=== PATIENT | female | born 1945 | race Caucasian/White ===

== ENCOUNTER 2019-06-29 15:19 | Emergency (ER) | payer OTHER, SELFPAY ==
[2019-06-29 14:44] VITALS: BP 118/57; PULSE 66; RESP 20; O2SAT 92
[2019-06-29 15:19] VITALS: BP 150/71; PULSE 88; RESP 24; TEMP 37.1; O2SAT 98; BMI 25.0
[2019-06-29] MEDS: ONDANSETRON 4 MG/2 ML INJ IV (15:37)
--- NOTE | 2019-06-29 15:57 | ED.ABDPAIN ---
HPI - Abdominal Pain <Cassidy Sneed MD - Last Filed: 07/13/19 07:01> General Chief Complaint: Abdominal Pain Stated Complaint: N/V Time Seen by Provider: 06/29/19 15:26 Source: patient and EMS Mode of arrival: EMS History of Present Illness HPI narrative: 73-year-old woman with a history of hypercholesterolemia presents with acute onset of abdominal pain. She had just eaten her lunch(which was left overs from dinner the night before) when she had the acute onset of severe stabbing central abdominal pain. She is feeling bloated and nauseated. Her last bowel movement was this morning but she notes that she is not able to pass any flatus currently. She has been otherwise healthy with no fever, cough, cold, chills, chest pain, dyspnea. Related Data Previous Rx's Medication Instructions Recorded ondansetron 4 mg PO Q6H PRN #10 tab 06/29/19 Allergies Allergy/AdvReac Type Severity Reaction Status Date / Time atorvastatin AdvReac Unknown LEG CRAMPS Verified 06/29/19 16:09 methocarbamol AdvReac Unknown Agitated Verified 06/29/19 16:09 simvastatin AdvReac Unknown LEG CRAMPS Verified 06/29/19 16:09 sulfamethoxazole AdvReac Unknown Gastrointestinal Verified 06/29/19 16:09 [From Bactrim] Upset trimethoprim [From Bactrim] AdvReac Unknown Gastrointestinal Verified 06/29/19 16:09 Upset Review of Systems <Cassidy Sneed MD - Last Filed: 07/13/19 07:01> Review of Systems Narrative: All systems reviewed and are unremarkable except as noted in HPI and below Patient History <Cassidy Sneed MD - Last Filed: 07/13/19 07:01> Medical History Hyperlipidemia (Acute) Surgical History H/O hysterectomy for benign disease (Inactive) Social History Smoking Status: Never smoker Smoking Status: Never smoker alcohol intake frequency: 0-2 drinks per day Alcohol type: wine Substance Use Type: does not use Exam <Cassidy Sneed MD - Last Filed: 07/13/19 07:01> Narrative Exam Narrative: General: Healthy appearing, in moderate abdominal pain. Able to give a complete and coherent history. Well-nourished well-developed HEENT: Moist mucous membranes, normal sclera with reactive pupils, Neck: No JVD, supple Respiratory: Lungs are clear to auscultation, no wheezing no rales no rhonchi. Full and symmetrical air movement Cardiac: Regular rate and rhythm no murmurs no bruits Abdomen: Mildly distended, diffusely tender without rebound or guarding and hypoactive bowel tones, no flank pain Skin: Warm and dry, no rashes Neurologic: Grossly neurologically intact with no obvious asymmetries or abnormalities Extremities: No trauma, well perfused Psych: Cooperative, appropriate insight and affect Initial Vital Signs Initial Vital Signs: Vital Signs Pulse Rate 66 06/29/19 14:44 Respiratory Rate 20 06/29/19 14:44 Blood Pressure 118/57 L 06/29/19 14:44 Pulse Oximetry 92 06/29/19 14:44 <Johnnie Lopez DO - Last Filed: 06/30/19 01:15> Initial Vital Signs Initial Vital Signs: Vital Signs Pulse Rate 66 06/29/19 14:44 Respiratory Rate 20 06/29/19 14:44 Blood Pressure 118/57 L 06/29/19 14:44 Pulse Oximetry 92 06/29/19 14:44 Course <Cassidy Sneed MD - Last Filed: 07/13/19 07:01> Orders Ordered: Discontinued Medications Hydromorphone HCl (Dilaudid) 0.5 mg IV NOW ONE Stop: 06/29/19 16:06 Last Admin: 06/29/19 17:10 Dose: 0.5 mg Documented by: CAMRON Hydromorphone HCl (Dilaudid) 0.5 mg IV NOW ONE Stop: 06/29/19 17:37 Last Admin: 06/29/19 17:41 Dose: 0.5 mg Documented by: CAMRON Sodium Chloride (Normal Saline 0.9%) 1,000 mls @ 150 mls/hr IV CONT ACOSTA Last Infusion: 06/29/19 20:01 Dose: 0 mls/hr Documented by: Admin: 03/16/20 18:21 Dose: 150 mls/hr Documented by: CAMRON Ondansetron HCl (Zofran) 4 mg IV NOW ONE Stop: 06/29/19 15:27 Last Admin: 06/29/19 15:37 Dose: 4 mg Documented by: AMBERLY Ondansetron HCl (Zofran Odt Prepack) 1 bottle MISC SEEINSTR ONE Stop: 06/29/19 18:51 Last Admin: 06/29/19 19:42 Dose: 1 bottle Documented by: CAMRON Vital Signs Vital signs: Vital Signs - 8 hr 06/29/19 17:46 06/29/19 17:48 06/29/19 19:31 Temperature 97.7 F Pulse Rate 80 87 77 Respiratory Rate 21 18 15 Blood Pressure Blood Pressure [Left Arm] 137/66 134/63 129/60 Pulse Oximetry 97 98 95 06/29/19 20:05 Temperature Pulse Rate 77 Respiratory Rate 15 Blood Pressure 129/60 Blood Pressure [Left Arm] Pulse Oximetry 95 <Johnnie Lopez DO - Last Filed: 06/30/19 01:15> Orders Ordered: Discontinued Medications Hydromorphone HCl (Dilaudid) 0.5 mg IV NOW ONE Stop: 06/29/19 16:06 Last Admin: 06/29/19 17:10 Dose: 0.5 mg Documented by: CAMRON Hydromorphone HCl (Dilaudid) 0.5 mg IV NOW ONE Stop: 06/29/19 17:37 Last Admin: 06/29/19 17:41 Dose: 0.5 mg Documented by: CAMRON Sodium Chloride (Normal Saline 0.9%) 1,000 mls @ 150 mls/hr IV CONT ACOSTA Last Infusion: 06/29/19 20:01 Dose: 0 mls/hr Documented by: Admin: 06/29/19 18:21 Dose: 150 mls/hr Documented by: CAMRON Ondansetron HCl (Zofran) 4 mg IV NOW ONE Stop: 06/29/19 15:27 Last Admin: 06/29/19 15:37 Dose: 4 mg Documented by: AMBERLY Ondansetron HCl (Zofran Odt Prepack) 1 bottle MISC SEEINSTR ONE Stop: 06/29/19 18:51 Last Admin: 06/29/19 19:42 Dose: 1 bottle Documented by: CAMRON Vital Signs Vital signs: Vital Signs - 8 hr 06/29/19 17:46 06/29/19 17:48 06/29/19 19:31 Temperature 97.7 F Pulse Rate 80 87 77 Respiratory Rate 21 18 15 Blood Pressure Blood Pressure [Left Arm] 137/66 134/63 129/60 Pulse Oximetry 97 98 95 06/29/19 20:05 Temperature Pulse Rate 77 Respiratory Rate 15 Blood Pressure 129/60 Blood Pressure [Left Arm] Pulse Oximetry 95 MDM - Abdominal Pain <Cassidy Sneed MD - Last Filed: 07/13/19 07:01> Medical Records Attestation: I reviewed the patient's medical records. Lab Data Attestation: I reviewed the patient's lab results. Result diagrams: 06/29/19 16:14 06/29/19 16:14 Labs: Lab Results 06/29/19 06/29/19 Range/Units 16:14 16:14 WBC 12.2 H (4.5-11.0) X10^3/uL RBC 4.94 (4.0-5.2) X10^6/uL Hgb 15.0 (12.0-16.0) g/dL Hct 44.6 (36-46) % MCV 90.2 (80-100) fL MCH 30.4 (26-34) PG MCHC 33.7 (30-36) % RDW 14.2 (11.6-14.8) % Plt Count 193 (150-400) X10^3/uL Neut % (Auto) 85.8 H (50-75) % Lymph % (Auto) 7.7 L (25-40) % [place] % (Auto) 5.5 (3-14) % Eos % (Auto) 0.6 L (2-4) % Baso % (Auto) 0.4 (0-2) % Neut # (Auto) 48447 H (0233-3661) /uL Lymph # (Auto) 900 L (7479-2316) /uL [place] # (Auto) 700 (0-900) /uL Eos # (Auto) 100 (0-450) /uL Baso # (Auto) 0 (0-100) /uL Sodium 137 (137-145) mmol/L Potassium 4.4 (3.4-5.1) mmol/L Chloride 105 (98-107) mmol/L Carbon Dioxide 25 (22-32) mmol/L BUN 18 H (7-17) mg/dL Creatinine 1.04 (0.52-1.04) mg/dL Estimated GFR 52.2 L (>60) mL/min BUN/Creatinine Ratio 17.3 (6-22) Glucose 179 H (80-110) mg/dL Calcium 10.2 (8.4-10.2) mg/dL Total Bilirubin 0.7 (0.2-1.3) mg/dL AST 25 (14-36) IU/L ALT 22 (<35) IU/L Alkaline Phosphatase 74 (38-126) U/L Total Protein 7.3 (6.3-8.2) g/dL Albumin 4.3 (3.5-5.0) g/dL Globulin 3.0 (1.7-4.1) g/dL Albumin/Globulin Ratio 1.4 (1.0-2.8) Lipase 167 (23-300) U/L [facility] Narrative Medical decision making narrative: Very cute onset severe abdominal pain shortly after eating in the setting of a patient who has had her gallbladder already removed and had the same food less than 8 hours previously. Concern for acute torsion, volvulus, obstruction or other surgical pathology. Labs are ordered. 1735 Pain is slightly improved after 0.5 mg of Dilaudid. Renal function is safe for IV contrast. CT scan of the abdomen is ordered. Additional 0.5 mg of Dilaudid is given. <Johnnie Lopez DO - Last Filed: 06/30/19 01:15> Lab Data Labs: Lab Results 06/29/19 06/29/19 Range/Units 16:14 16:14 WBC 12.2 H (4.5-11.0) X10^3/uL RBC 4.94 (4.0-5.2) X10^6/uL Hgb 15.0 (12.0-16.0) g/dL Hct 44.6 (36-46) % MCV 90.2 (80-100) fL MCH 30.4 (26-34) PG MCHC 33.7 (30-36) % RDW 14.2 (11.6-14.8) % Plt Count 193 (150-400) X10^3/uL Neut % (Auto) 85.8 H (50-75) % Lymph % (Auto) 7.7 L (25-40) % [place] % (Auto) 5.5 (3-14) % Eos % (Auto) 0.6 L (2-4) % Baso % (Auto) 0.4 (0-2) % Neut # (Auto) 56225 H (5970-0610) /uL Lymph # (Auto) 900 L (1911-4579) /uL [place] # (Auto) 700 (0-900) /uL Eos # (Auto) 100 (0-450) /uL Baso # (Auto) 0 (0-100) /uL Sodium 137 (137-145) mmol/L Potassium 4.4 (3.4-5.1) mmol/L Chloride 105 (98-107) mmol/L Carbon Dioxide 25 (22-32) mmol/L BUN 18 H (7-17) mg/dL Creatinine 1.04 (0.52-1.04) mg/dL Estimated GFR 52.2 L (>60) mL/min BUN/Creatinine Ratio 17.3 (6-22) Glucose 179 H (80-110) mg/dL Calcium 10.2 (8.4-10.2) mg/dL Total Bilirubin 0.7 (0.2-1.3) mg/dL AST 25 (14-36) IU/L ALT 22 (<35) IU/L Alkaline Phosphatase 74 (38-126) U/L Total Protein 7.3 (6.3-8.2) g/dL Albumin 4.3 (3.5-5.0) g/dL Globulin 3.0 (1.7-4.1) g/dL Albumin/Globulin Ratio 1.4 (1.0-2.8) Lipase 167 (23-300) U/L Imaging Data CT scan - abdomen/pelvis: Radiologist's Impression: Neli Rowley 73 F [address] [address] [address] Scan Report Signed Patient: Neli Rowley#: [id number] : 8Acct:[id number] Age/Sex: 73 / FDate of Service: 03/16/20 Loc: ED Accession Number: [id number] Procedure: CT abdomen pelvis w con Ordering Provider: Cassidy Sneed MD PROCEDURE: CT ABDOMEN PELVIS W CON INDICATIONS: acute onset abd pain 2pm TECHNIQUE: After the administration of intravenous contrast, 5 mm thick sections acquired from the diaphragm to the symphysis. 5 mm coronal and sagittal reformats were acquired. For radiation dose reduction, the following was used: automated exposure control, adjustment of mA and/or kV according to patient size. COMPARISON: None. FINDINGS: Image quality: Excellent. ABDOMEN: Lung bases: Dense scarring/rounded atelectatic changes laterally at the left lung base and to lesser extent posterior medially at the right lung base. No effusion. Heart size is normal. Solid organs: Liver is normal in size and enhancement. Gallbladder is surgically absent. Biliary system is minimally dilated. Pancreas enhances normally. Spleen is normal in size and enhancement. No adrenal nodules. Kidneys demonstrate normal size and enhancement, without hydronephrosis. Peritoneum and bowel: The stomach is moderately distended and the proximal portion is filled with fluid. Proximal small bowel is decompressed. The distal small bowel contains fluid but is nondilated. There is liquid stool and air fluid levels throughout the proximal colon with semisolid stool seen distally. No transition point is seen. Occasional descending and sigmoid diverticulosis. No acute diverticulitis. Bowel loops demonstrate normal wall thickness and caliber. No free fluid or air. Nodes and vessels: No retroperitoneal or mesenteric adenopathy by size criteria. Aorta and inferior vena cava are normal in size. Miscellaneous: No ventral hernias. PELVIS: Genitourinary: Bladder wall thickness is normal. Uterus is surgically absent. Ovarian tissue is age-appropriate. Miscellaneous: No inguinal hernias or adenopathy. Bones: No suspicious bony lesions. Degenerative and postsurgical changes in the lumbar spine, most severely at L2-3 and L3-4. No vertebral body compression fractures. IMPRESSION: 1. Findings suggesting gastroenteritis. 2. Occasional diverticulosis without acute diverticulitis. 3. Post cholecystectomy, hysterectomy, lumbar hemilaminectomy. 4. Bibasilar atelectatic changes, left lung base worse than right. The Dictated by: Jody Elizalde M.D. on 06/29/2019 at 18:11 Approved by: Jody Elizalde M.D. on 06/29/2019 at 18:20 MDM Narrative Medical decision making narrative: Dr Lopez: Received turned over from Dr. villarreal. Review patient's history and physical. Reviewed patient's labs. Waiting on CT results which eventually resulted as no signs of acute surgical abnormality. Is consistent with gastroenteritis. This does with the patient's presenting symptoms. I did discuss this with the patient. We did discuss the CT results findings. No indication for antibiotics. Discussed return precautions and follow-up instructions. They expressed understanding and agreement with plan. Discharge Plan Departure Patient Disposition: Home Clinical Impression: Gastroenteritis Discharge Date/Time: 06/29/19 20:28 Instructions: Gastroenteritis Diet Activity Restrictions/Additional Instructions: Recommend that you wash your hands frequently. Be sure to increase your fluid intake. Use the nausea medication as needed and as directed. Contact your primary provider for follow-up. Do not be surprised if you develop diarrhea over the next couple days. If this happens just be sure you are drinking plenty of fluids. Return to the emergency department for any new or worsening symptoms Prescriptions: New ondansetron 4 mg tablet,disintegrating 4 mg PO Q6H PRN (Reason: nausea and vomiting) Qty: 10 RF: 0 Referrals: Pamela Lujan MD [Primary Care Provider] - Stand Alone Forms: Work Release Note
[2019-06-29 16:21] LABS: Add Manual Diff / Slide Review NO; Basophils Absolute Auto 0 /uL (0-100); Basophils Percent Auto 0.4 % (0-2); Eosinophils Absolute Auto 100 /uL (0-450); Eosinophils Percent Auto 0.6 % (2-4); Hematocrit 44.6 % (36-46); Lymphocytes Absolute Auto 900 /uL (1100-4500); Lymphocytes Percent Auto 7.7 % (25-40); Mean Corpuscular HGB Conc 33.7 % (30-36); Mean Corpuscular Hemoglobin 30.4 PG (26-34); Mean Corpuscular Volume 90.2 fL (80-100); Monocytes Absolute Auto 700 /uL (0-900); Monocytes Percent Auto 5.5 % (3-14); Neutrophils Absolute Auto 10400 /uL (1500-7000); Neutrophils Percent Auto 85.8 % (50-75); Platelet Count 193 X10^3/uL (150-400); Red Blood Cell Count 4.94 X10^6/uL (4.0-5.2); Red Cell Distribution Width 14.2 % (11.6-14.8); White Blood Cell Count 12.2 X10^3/uL (4.5-11.0)
[2019-06-29 16:38] LABS: Alanine Aminotransferase 22 IU/L (<35); Albumin 4.3 g/dL (3.5-5.0); Albumin Globulin Ratio 1.4 (1.0-2.8); Alkaline Phosphatase 74 U/L (38-126); Aspartate Aminotransferase 25 IU/L (14-36); BUN Creatinine Ratio 17.3 (6-22); Bilirubin Total 0.7 mg/dL (0.2-1.3); Blood Urea Nitrogen 18 mg/dL (7-17); Calcium 10.2 mg/dL (8.4-10.2); Carbon Dioxide 25 mmol/L (22-32); Chloride 105 mmol/L (98-107); Estimated Glomerular Filt Rate 52.2 mL/min (>60); Glucose 179 mg/dL (80-110); HEMOLYSIS 18 (0-50); Lipase 167 U/L (23-300); Potassium 4.4 mmol/L (3.4-5.1); Sodium 137 mmol/L (137-145); Total Protein 7.3 g/dL (6.3-8.2)
[2019-06-29] MEDS: HYDROMORPHONE 0.5 MG INJ IV ×2 (17:10→17:41)
--- NOTE | 2019-06-29 17:36 | DI.CT.S_ITS ---
PROCEDURE: CT ABDOMEN PELVIS W CON INDICATIONS: acute onset abd pain 2pm TECHNIQUE: After the administration of intravenous contrast, 5 mm thick sections acquired from the diaphragm to the symphysis. 5 mm coronal and sagittal reformats were acquired. For radiation dose reduction, the following was used: automated exposure control, adjustment of mA and/or kV according to patient size. COMPARISON: None. FINDINGS: Image quality: Excellent. ABDOMEN: Lung bases: Dense scarring/rounded atelectatic changes laterally at the left lung base and to lesser extent posterior medially at the right lung base. No effusion. Heart size is normal. Solid organs: Liver is normal in size and enhancement. Gallbladder is surgically absent. Biliary system is minimally dilated. Pancreas enhances normally. Spleen is normal in size and enhancement. No adrenal nodules. Kidneys demonstrate normal size and enhancement, without hydronephrosis. Peritoneum and bowel: The stomach is moderately distended and the proximal portion is filled with fluid. Proximal small bowel is decompressed. The distal small bowel contains fluid but is nondilated. There is liquid stool and air fluid levels throughout the proximal colon with semisolid stool seen distally. No transition point is seen. Occasional descending and sigmoid diverticulosis. No acute diverticulitis. Bowel loops demonstrate normal wall thickness and caliber. No free fluid or air. Nodes and vessels: No retroperitoneal or mesenteric adenopathy by size criteria. Aorta and inferior vena cava are normal in size. Miscellaneous: No ventral hernias. PELVIS: Genitourinary: Bladder wall thickness is normal. Uterus is surgically absent. Ovarian tissue is age-appropriate. Miscellaneous: No inguinal hernias or adenopathy. Bones: No suspicious bony lesions. Degenerative and postsurgical changes in the lumbar spine, most severely at L2-3 and L3-4. No vertebral body compression fractures. IMPRESSION: 1. Findings suggesting gastroenteritis. 2. Occasional diverticulosis without acute diverticulitis. 3. Post cholecystectomy, hysterectomy, lumbar hemilaminectomy. 4. Bibasilar atelectatic changes, left lung base worse than right. The Dictated by: Jody Elizalde M.D. on 06/29/2019 at 18:11 Approved by: Jody Elizalde M.D. on 06/29/2019 at 18:20
[2019-06-29 17:46] VITALS: BP 137/66; PULSE 80; RESP 21; O2SAT 97
[2019-06-29 17:48] VITALS: BP 134/63; PULSE 87; RESP 18; TEMP 36.5; O2SAT 98
[2019-06-29] MEDS: SODIUM CHLORIDE 0.9% 1,000 ML 150 ML IV (18:21)
--- NOTE | 2019-06-29 18:56 | PC.NURSE ---
Patient gave Trever the number to her daughter and would like an able body to call her at with details of her ER visit. Patient was left in room with call light in reach and is alert and oriented. She reports that her pain goals have been met.
[2019-06-29 19:31] VITALS: BP 129/60; PULSE 77; RESP 15; O2SAT 95
[2019-06-29] MEDS: ONDANSETRON 4 MG ODT PREPACK 1 BOTTLE MISC (19:42)
[2019-06-29 20:05] VITALS: BP 129/60; PULSE 77; RESP 15; O2SAT 95
== END 2019-06-29 20:28 | disposition home or self-care (01) ==
PROVIDERS: Emergency Medicine; Emergency Provider Emergency Medicine; PCP Internal Medicine
DX: K52.9 Noninfective gastroenteritis and colitis, unspecified (principal); E78.5 Hyperlipidemia, unspecified
CPT/HCPCS: 36415; 74177; 80053; 83690; 85025; 93005; 96361; 96374; 96375; 96376; 99284; J1170; J2405; Q9967

== ENCOUNTER → 2020-08-15 09:26 | Outpatient (CLI) | payer OTHER, SELFPAY ==
--- NOTE | 2020-08-15 09:28 | DI.MRI.S_ITS ---
PROCEDURE: MR KNEE LT WO CON INDICATIONS: Unilateral primary osteoarthritis, left knee TECHNIQUE: Noncontrast sagittal PD fast spin echo and T2 fast spin echo with fat saturation, sagittal 3-D FLASH with fat saturation; coronal T1 spin echo and PD fast spin echo with fat saturation, and axial PD fast spin echo with fat saturation through the knee. COMPARISON: [facility], MR, MR KNEE LEFT WITHOUT CONTRAST, 10/21/2018, 9:47. [facility], CR, XR KNEE 4+ VIEWS LEFT, 06/08/2020, 16:39. FINDINGS: Image quality: Degraded by body habitus and motion artifact. Menisci: Medial extrusion of the medial meniscus is present, as before. There is increased, linear and amorphous high signal intensity within the anterior horn, body, and posterior horn medial meniscus, demonstrating superior and inferior articular surface extension, indicating progressive complex tearing. Linear oblique high signal intensity within the lateral meniscal body, demonstrating inferior articular surface extension is present, indicating oblique tearing. Previously seen degenerative tearing of the free edge of the lateral meniscus is unchanged. Cruciate ligaments: The anterior and posterior cruciate ligaments appear intact. Medial structures: The medial collateral ligament appears intact. Visualized portions of the pes anserinus tendons appear normal. Mild T2 signal elevation within the semimembranosus at the tibial insertion site, as before. No abnormal bursal fluid. Lateral structures: The lateral collateral ligament, long and short heads of the biceps femoris tendon appear intact. The popliteus tendon appears normal. Iliotibial band appears normal. Anterior structures: The quadriceps and patellar tendons appear intact. Moderate T2 signal elevation within the quadriceps tendon at the patellar insertion site. Patellar alignment is normal. No femoral trochlear dysplasia or ventral trochlear prominence. No edema in the infrapatellar fat pad. Bones and cartilage: No bone marrow contusions or fractures. Moderate tricompartmental periarticular osteophyte formation is present. Mild subchondral degenerative marrow edema within the weight-bearing aspects of the medial femoral condyle and medial tibial plateau is present. Severe articular cartilage loss diffusely overlies the weight-bearing aspects of the medial femoral condyle and medial tibial plateau. Mild articular cartilage loss diffusely overlies the weight-bearing aspects of the lateral femoral condyle and lateral tibial plateau. Moderate articular cartilage loss overlies the medial and lateral patellar facets. Joint space: There is a moderate knee joint effusion and a trace Nation's cyst. Normal appearing synovial plicae are incidentally noted. IMPRESSION: 1. Tricompartmental osteoarthritis with associated articular cartilage loss. 2. Medial and lateral meniscal tearing as described above. 3. Quadriceps tendinopathy. 4. Insertional tendinitis of the semimembranosus. New line 5. Knee joint effusion. Dictated by: Luke Pizarro M.D. on 08/15/2020 at 11:12 Approved by: Luke Pizarro M.D. on 08/15/2020 at 11:16
== END ==
PROVIDERS: PCP Orthopaedic Surgery; Referring Provider Orthopaedic Surgery; Visit Provider Orthopaedic Surgery
DX: M17.12 Unilateral primary osteoarthritis, left knee (principal); S83.232A Complex tear of medial meniscus, current injury, left knee, initial encounter; S83.282A Other tear of lateral meniscus, current injury, left knee, initial encounter; M25.462 Effusion, left knee; M76.892 Other specified enthesopathies of left lower limb, excluding foot
CPT/HCPCS: 73721

== ENCOUNTER → 2020-09-12 09:05 | Outpatient (CLI) | payer OTHER, SELFPAY ==
[2020-09-12 12:03] LABS: COVID19 -Nasal RAPID Negative (Negative)
== END ==
PROVIDERS: Visit Provider Student in an Organized Health Care Education/Training Program
DX: Z20.822 Contact with and (suspected) exposure to COVID-19 (principal); Z01.812 Encounter for preprocedural laboratory examination
CPT/HCPCS: 87635; C9803

== ENCOUNTER 2020-09-14 14:25 | Observation (INO) | payer OTHER, SELFPAY ==
[2020-09-06 12:40] VITALS: BMI 45.8
[2020-09-13] VITALS (16 sets, daily range): BP systolic 106–167; BP diastolic 65–91; PULSE 74–90; RESP 12–20; TEMP 36–36.9; O2SAT 90–98; BMI 45.8
[2020-09-13] MEDS: ACETAMINOPHEN 325 MG TABLET 975 MG PO (06:46)
[2020-09-13] MEDS: MELOXICAM 7.5 MG TABLET 15 MG PO (06:47)
[2020-09-13] MEDS: VANCOMYCIN 1,000 MG/200 ML PIGGYBACK 200 MG IV (07:14)
[2020-09-13 07:18] LABS: Add Manual Diff / Slide Review NO; Basophils Absolute Auto 100 /uL (0-100); Basophils Percent Auto 1.1 % (0-2); Eosinophils Absolute Auto 300 /uL (0-450); Eosinophils Percent Auto 4.7 % (2-4); Hematocrit 38.3 % (36-46); Hemoglobin 13.2 g/dL (12.0-16.0); Lymphocytes Absolute Auto 1500 /uL (1100-4500); Lymphocytes Percent Auto 22.7 % (25-40); Mean Corpuscular HGB Conc 34.5 % (30-36); Mean Corpuscular Hemoglobin 30.8 PG (26-34); Mean Corpuscular Volume 89.2 fL (80-100); Monocytes Absolute Auto 400 /uL (0-900); Monocytes Percent Auto 6.9 % (3-14); Neutrophils Absolute Auto 4200 /uL (1500-7000); Neutrophils Percent Auto 64.6 % (50-75); Platelet Count 188 X10^3/uL (150-400); Red Blood Cell Count 4.29 X10^6/uL (4.0-5.2); Red Cell Distribution Width 14.2 % (11.6-14.8); White Blood Cell Count 6.5 X10^3/uL (4.5-11.0)
[2020-09-13 07:29] LABS: BUN Creatinine Ratio 9.3 (6-22); Blood Urea Nitrogen 9 mg/dL (7-17); Calcium 8.2 mg/dL (8.4-10.2); Carbon Dioxide 23 mmol/L (22-32); Chloride 107 mmol/L (98-107); Estimated Glomerular Filt Rate 56.3 mL/min (>60); Glucose 161 mg/dL (80-110); HEMOLYSIS < 15 (0-50); Potassium 4.6 mmol/L (3.4-5.1); Sodium 137 mmol/L (137-145)
[2020-09-13] MEDS: LACTATED RINGERS 1,000 ML 42 ML IV ×2 (07:30→08:29)
[2020-09-13] MEDS: FAMOTIDINE 20 MG/50 ML PIGGYBACK 200 MG IV (07:30)
--- NOTE | 2020-09-13 07:36 | P.OP_ITS ---
Operative Date/Time/Diagnoses Date of procedure: 09/13/20 Time of procedure: 07:59 Pre-op diagnosis: left knee OA Post-op diagnosis: same Procedure & Clinicians Procedure: Left total knee replacement Same procedure as scheduled: Yes Indications: The patient has had progressively worsening left knee pain with radiographic changes consistent with arthritis. Non-operative management has failed and the patient has requested total knee replacement. The risks, benefits and alternatives to surgery were discussed with the patient prior to proceeding. Risks discussed included, but were not limited to, failure to relieve pain, stiffness, infection, nerve damage, deep venous thrombosis, pulmonary embolism, stroke, coma, heart attack, permanent paralysis and , as well as the potential need for eventual revision of the prosthetic. Preoperatively she was noted to have substantial problems with diabetes. She was meticulously stabilized with her primary care practitioner and her manager customer service. I anticipate she will require close glucose monitoring postoperatively and will likely require admission in order to optimally care for her in the perioperative. Surgeon: Roselyn Fletcher Census Enumerator: Duane Carlin Click Yes if Unassisted: Yes Anesthesia Type: Spinal Operative Notes Findings: Severe left knee arthritis good stability Closure Type: primary Specimen(s): none sent Prosthetic devices, grafts, tissues, transplants, or devices: [facility] 2 size 7 femur, size 6 tibia, 11 poly, 35 x 7.5 mm patella Applied: drain(s) Estimated Blood Loss (mL): 250 Blood products transfused: none Tourniquet time (min): 74 Procedure in detail: The patient was seen in the pre-operative area, where the patient identified the left knee as the operative site and this was marked with my initials. The patient received pre-operative antibiotics, and was taken to the operating room and placed on the operative table in the supine position. After satisfactory anesthesia, a quoter out was performed. The left leg was encircled with a tourniquet about the proximal thigh, and the leg was prepared from the toes to the tourniquet with ChloroPrep in the usual fashion and draped through sterile drapes. The leg was elevated and exsanguinated with Eschmark bandage and the tourniquet inflated to [250] mmHg pressure. The knee was approached through an approximately 18 cm incision centered over the patella and carried into the knee through a medial parapatellar arthrotomy. A portion of the medial and lateral meniscus was resected. Soft tissue was carefully mobilized around the patella the patella was measured with a caliper. Bone was resected from the patella and the patellar height was reconstituted with up an appropriate sized patellar component. A cover was then placed on the patella. A small amount of additional medial and lateral meniscus was resected. The visionare guide fit well to the distal femur. It looked like an appropriate distal femoral cut and the cut was made without difficulty. The rotation was assessed and the appropriate size femoral guide was placed on the distal femur and finishing cuts were made. There was no evidence of notching. The anterior, posterior and chamfer cuts were then made. The posterior osteophytes and soft tissues were then removed. The posterior capsule was injected with part of a mixture of 60 ml 0.25% Marcaine mixed with 20 ml Exparel for post operative pain control. The remainder of this mixture was injected into the capsule and subcutaneous tissues during cement curing. The tibia was prepared and the visionaire guide fit well to the distal tibia. The rotation was assessed. The patient was placed in extension residual medial and lateral meniscus as well as any residual bone was carefully resected. [No] additional tibia was resected. Hemostasis was achieved especially posteriorly. Additional local was injected into the posterior capsule. The extension gap was assessed and additional releases for gap balancing were performed as necessary. It was checked with the gap head of sales promotion. The femoral component was trial was placed and the notch was finished. Trial tibial and femoral components were then placed and the knee placed through a range of motion. Range of motion was [0-120], with good stability throughout the range. The trials were then removed, and the tibia was finished. The bone was prepared with pulsatile lavage, and dried with a sponge. Cement was applied and the final prosthetics placed. Excess cement was removed during and after cement curing. A brief Betadine soak was performed. After confirming there was no extruded cement posteriorly, the final tibial insert was placed. The knee was copiously irrigated and the tourniquet deflated. Hemostasis was obtained with the Bovie. A drain was placed and brought out superolaterally. The capsule was closed with interrupted Vicryl suture. The subcutaneous layer was closed with barbed sutures, and the skin with a running 3-0 V-Lock suture and Surgical glue. An Aquacel Ag dressing was applied and the patient was taken to recovery having tolerated the procedure well. Complications: none Post-operative Condition: stable Disposition: Acute Care Plan for aftercare: The patient will be maintained on a standard total knee replacement protocol with weight bearing as tolerated. The patient will receive aspirin and sequential compression devices for DVT prophylaxis. She has multiple medical problems including diabetes which requires meticulous control and monitoring, sleep apnea, hypertension and thyroid disorder as well as substantial arthritis and morbid obesity. I anticipate she will require hospitalization as it is most likely she will require at least a 2 night stay. She also has some issues related to urinary incontinence. We will attempt to mobilize her as quickly as possible and will work towards discharge to home when stable. The patient will be discharged home when safe for the home environment.
--- NOTE | 2020-09-13 07:36 | PM.PREOP ---
Pre-operative Note COVID-19 COVID-19 status: Negative Interval Note History & Physical reviewed/Exam performed by Physician: Yes Changes to H&P: No
[2020-09-13] MEDS: CEFAZOLIN 1 GM VIAL 2 GM IV (07:58)
--- NOTE | 2020-09-13 08:18 | SUR.OPER ---
Supine on padded OR bed. Pillow under head, arms secured on padded arm boards <90 degree abduction. Safety belt across torso. Non-operative leg secured with tape over blanket over lower leg. Operative leg secured in DeMayo positioner. Foam padded brace at thigh of operative leg.
[2020-09-13] MEDS: TRANEXAMIC ACID 1,000 MG VIAL 1000 MG INJ ×2 (08:27→09:42)
[2020-09-13] MEDS: BUPIVACAINE LIPOSOME 266 MG/20 ML VIAL INJ (08:30)
[2020-09-13] MEDS: SODIUM CHLORIDE IRRIG SOLUTION 250 ML, POVIDONE-IODINE SPONGE STICKS 1 APPLIC IRR (08:30)
[2020-09-13] MEDS: BUPIVACAINE 0.5% W/ EPI (PF) 30 ML VIAL INJ (08:31)
--- NOTE | 2020-09-13 10:00 | DI.RAD.S_ITS ---
PROCEDURE: XR KNEE LT 1TO2V INDICATIONS: LEFT TOTAL KNEE TECHNIQUE: 2 views of the knee were acquired. COMPARISON: [facility] [place], [place], XR KNEE 4+ VIEWS LEFT, 06/08/2020, 16:39. FINDINGS: Bones: No fractures or dislocations. No suspicious bony lesions. Left knee arthroplasty has been performed. Soft tissues: No joint effusion. No suspicious soft tissue calcifications. IMPRESSION: Expected appearance of left knee arthroplasty. Dictated by: Luke Pizarro M.D. on 09/13/2020 at 16:25 Approved by: Luke Pizarro M.D. on 09/13/2020 at 16:26
--- NOTE | 2020-09-13 10:44 | PC.NURSE ---
Day shift: Pt not on AC unit at this time (7100).
--- NOTE | 2020-09-13 10:59 | PC.NURSE ---
Day shift: Pt on unit from PACU at approx 1100. Oriented to room and call light. Agrees to not get OOB w/o help from staff. PPP but Pt not able to move left toes at this time. RA 96%. VS WNL. SHRAVAN wrap and EDWARD drain CDI. Cristhian-vac is clamped and will be unclamped at 1220 today. Call light in reach. Denies any pain at this time. Pt also stated that she wjust wants to sleep at this time. Will continue w/ plan of care. IV fluids infusing per MAR. Pt does have Hx of post-op nausea and emesis. RT called to help set-up CPAP.
[2020-09-13] MEDS: LACTATED RINGERS 1,000 ML 100 ML IV ×2 (11:13→22:23)
--- NOTE | 2020-09-13 12:21 | PC.NURSE ---
Day shift: Cristhian-vac unclamped at this time (0868). It is patent. Will monitor output per protocol. Pt remains asleep. 94% RA. No s/s of pain or discomfort. IV infusing per MAR. Call light in reach.
--- NOTE | 2020-09-13 13:05 | PT-IP ANOTE ---
checked with nurse and stated that pt is not ready for PT. stated pt is just starting to be able to wiggle her toes but barely. will f/u
[2020-09-13] MEDS: IBUPROFEN 400 MG TABLET PO ×3 (13:38→19:59)
[2020-09-13] MEDS: OXYCODONE IR 5 MG TABLET PO (13:59)
[2020-09-13] MEDS: ACETAMINOPHEN 325 MG TABLET 650 MG PO ×2 (14:05→19:59)
[2020-09-13] MEDS: ONDANSETRON 4 MG/2 ML INJ IV (15:27)
[2020-09-13] MEDS: HYDROMORPHONE 4 MG TABLET PO ×2 (15:27→19:57)
[2020-09-13] MEDS: CEFAZOLIN VIAL 3 GM in SODIUM CHLORIDE 0.9% 100 ML 200 ML IV ×2 (15:35→23:49)
[2020-09-13] MEDS: KETOROLAC 30 MG/ML VIAL IV (17:18)
[2020-09-13] MEDS: PRAMIPEXOLE 0.25 MG TABLET PO (20:33)
[2020-09-13] MEDS: DOCUSATE 100 MG CAPSULE PO (20:34)
[2020-09-13] MEDS: PANTOPRAZOLE DR 40 MG TABLET PO (20:34)
[2020-09-13] MEDS: DULOXETINE 30 MG CAPSULE PO (20:34)
[2020-09-13] MEDS: ASPIRIN EC 81 MG TABLET PO (20:34)
[2020-09-13] MEDS: ATORVASTATIN 20 MG TABLET 10 MG PO (20:34)
[2020-09-13] MEDS: HYDROMORPHONE 0.5 MG INJ IV (22:18)
--- NOTE | 2020-09-13 23:13 | PC.NURSE ---
Evening Shift Note- EDWARD Dressing noted to be saturated with blood during shift assessment. EDWARD was on and functioning properly at that time. Dr. Fletcher saw dressing at this time. Recheck approx an hour late with More bloody drainage noted. called Dr. Fletcher, did not want to change dressing at that time. Dressing was checked again at 1999. EDWARD was now blinking orange with no noted suction to dressing. Unable to find and seal an air leak. Blood was now beyond the gauze of the dressing and pooling ubder the clear adhisive film. Called Dr. Fletcher again, recieved orders to now change the EDWARD Dressing and wrap with keysha wrap. Dressing changed, wound cleaned, new dressing placed, and keysha wrap applied. Patient tolerated. Will continue to [facility].
[2020-09-14 03:58] VITALS: BP 144/76; PULSE 78; RESP 18; TEMP 36.2; O2SAT 96
[2020-09-14] MEDS: KETOROLAC 30 MG/ML VIAL 15 MG IV ×3 (03:58→23:55)
--- NOTE | 2020-09-14 04:12 | PC.NURSE ---
At shift change patient stated left knee pain was 6/10 but tolerable and when pain meds due at 0000 patient was asleep and has been sleeping since that time but now awakened during assessment and now states pain is throbbing at 5/10 severity so medicated with Toradol. Is alert and oriented. Breath sounds CTA with RA sat of 96%; using home CPAP for sleep. HRR with current BP of 144/76. Denies nausea. BT present and states she has passed flatus. Has not voided as yet this shift but denies any dysuria. Is able to move herself in bed. Gait not assessed at this time. EDWARD dressing to left knee is intact with dark red drainage noted at distal end. Hemovac is intact and compressed but appears to not be functioning. Left LE is swollen. CMS is intact although does not have full ROM as yet. Wearing bilateral calf SCD's. Fall risk score is high and bed alarm is activated.
[2020-09-14 05:59] LABS: Hematocrit 33.5 % (36-46); Hemoglobin 11.4 g/dL (12.0-16.0)
[2020-09-14] MEDS: PANTOPRAZOLE DR 40 MG TABLET PO ×2 (06:30→21:44)
[2020-09-14] MEDS: LEVOTHYROXINE 100 MCG TABLET PO (06:30)
[2020-09-14] MEDS: ASPIRIN EC 81 MG TABLET PO ×2 (08:14→21:44)
[2020-09-14] MEDS: DULOXETINE 30 MG CAPSULE 120 MG PO (08:14)
[2020-09-14] MEDS: IBUPROFEN 400 MG TABLET PO (08:14)
[2020-09-14] MEDS: OXYBUTYNIN 5 MG ER TAB 15 MG PO (08:14)
[2020-09-14] MEDS: DOCUSATE 100 MG CAPSULE PO ×2 (08:14→21:44)
[2020-09-14] MEDS: ACETAMINOPHEN 325 MG TABLET 650 MG PO ×3 (08:15→21:42)
[2020-09-14 08:16] VITALS: BP 101/46
[2020-09-14] MEDS: LACTATED RINGERS 1,000 ML 100 ML IV (08:16)
[2020-09-14] MEDS: INSULIN LISPRO 100 UNIT/ML 3ML VIAL SUBCUT ×4 (08:25→21:46)
[2020-09-14] MEDS: INSULIN GLARGINE 100 UNIT/ML 3ML PEN 35 UNIT SUBCUT ×2 (08:51→21:44)
[2020-09-14] MEDS: HYDROMORPHONE 2 MG TABLET PO ×3 (08:54→18:44)
--- NOTE | 2020-09-14 08:55 | PT.IIE ---
Current Diagnoses Unilateral primary osteoarthritis, left knee (09/13/20) Surgery Performed Operation Date: 09/13/20 07:45 Actual Procedures p Total Knee Arthroplasty(Left) - Roselyn Fletcher MD Surgical History (Last Reviewed 09/14/20 @ 11:21 by Duane Carlin PA-C) H/O hysterectomy for benign disease History of ankle surgery (~1969) History of hysterectomy History of lumbar laminectomy (2013) Hx of appendectomy Hx of bilateral cataract extraction (~03/2020) Hx of cholecystectomy Hx of dilation and curettage Hx of sinus surgery S/P patent foramen ovale closure (2004) Medical History (Last Reviewed 09/14/20 @ 11:21 by Duane Carlin PA-C) Athlete's foot Diabetes Easy bruisability Gastroparesis GERD (gastroesophageal reflux disease) HTN (hypertension) Hyperlipidemia Hypothyroidism IBS (irritable bowel syndrome) Neuropathy SAUNDRA on CPAP Pneumonia Presence of device Rash and nonspecific skin eruption RLS (restless legs syndrome) Physical Therapy Inpatient Evaluation/Re-Eval M1 PT/OT-IP Prior Functional Status Start: 09/14/20 12:16 Freq: NEEDED Status: Active Protocol: Document 09/14/20 08:55 AB (Rec: 09/14/20 12:37 AB [id number]) Medical Review Prior Functional Status Medical History Reviewed Yes Communication able to make needs known Mobility and Gait pt stated that she is independent with all mobilities and ambulation without AD Social History Household Members none Living Arrangements Apartment/Condo Number of Stairs To Enter/Railing? pt lives at a 2nd floor apartement with an elevator to get to her floor Home Environment Standard Height Toilet,Tub/ Shower,Elevator Home Equipment Four Wheel Walker,Raised Toilet Seat w/Armrests,Hand Held Shower,Grab Bars Near Toilet,Grab Bars In Shower Employment Status Retired Additional Social History Comment pt stated that she has friends that can assist her if needed but there's nobody to set up to assist her; also stated that she can stay at her friends house M2 PT-IP Current Condition Start: 09/14/20 12:16 Freq: NEEDED Status: Active Protocol: Document 09/14/20 08:55 AB (Rec: 09/14/20 12:37 AB [email or web address]) Physical Therapy Current Condition Current Condition Evaluation Date 09/14/20 Treatment Diagnosis s/p L TKA ; difficulty in walking Onset Date 09/13/20 Precautions Other Precautions falls Weight Bearing Status Weight Bearing Status Weight Bear as Tolerated Allowed Weight Bearing Amount (enter % LLE WBAT or #) (%) M3 PT-IP Subjective Start: 09/14/20 12:16 Freq: NEEDED Status: Active Protocol: Document 09/14/20 08:55 AB (Rec: 09/14/20 12:37 AB [id number]) Subjective Physical Therapy Visit Type Type Initial Evaluation Visit Start Time 08:55 Visit Stop Time 09:56 Total Visit Minutes 61 Number of LAUNDRY TECHNICIAN Visits 0 Physical Therapy Visit Comments Patient Comments requires encouragement to participate Therapy Pain Assessment Pain When Pain Assessed At Rest Pain Present Pain Present Pain Reported Location left knee Intensity 5 Scale Used Numeric (0 - 10) Pain Management Techniques Apply Cold,Modification of Treatment,Re-positioning, Timing of Activity with Medications M4 PT-IP Mobility and Gait Start: 09/14/20 12:16 Freq: NEEDED Status: Active Protocol: Document 09/14/20 08:55 AB (Rec: 09/14/20 12:37 AB [id number]) PT-Bed Mobility Assessment Sit to Supine Sit to Supine Maximum Assistance PT-Transfer Assessment Sit to and From Stand Sit to and from Stand Maximum Assistance,1 Person Assistance,Use of Upper Extremities Equipment Transfer Assistive Device Front Wheeled Walker Orthotic/Prosthetic Devices or Brace: No Transfers Transfer Destination Bed Transfer Technique Stand Step Pivot Transfer Ability Level of Assist Maximum Assistance,Use of Upper Extremities Comments Mobility Comments completed sit to stand max A and max cues. instructed pt to sit back down requiring max A for controlled descent. educated pt on techniques for sit<>stand. completed sit <> stand x 3 reps max A and cues. ambulated ~ 3 ft using FWW max A and max cue with heavy UE weight bearing on FWW. pt requested to go back to bed. completed sit to supine max A and max cues. positioned on bed. call light and table placed within reach. informed pt regarding mobility assistance needs and recommendation of FWW. pt stated that she does not want to go to SNF but does not have somebody consistent to assist her / at home. stated that she is not going to get up much and walk around at home. also stated that the PT from her pre-op told her that her 4WW will be ok to use as long as she is safe. explained to pt regarding stability and safety and assistance needed at this time a FWW is recommended. pt directs her own care and refused to go to SNF but does not have a definite plan of assistance for safe d/c home. Gait Assessment Gait Gait Assistance Required: Maximum Assistance Distance (Feet) 3 Able to Maintain Weight Bearing Status Yes During Gait Assistive Devices Assistive Device Gait Belt,Front Wheeled Walker Orthotic/Prosthetic Devices or Brace: No Gait Deviations General Gait Pattern Antalgic,Decreased Stride Length,Decreased Feet Clearance,Step-to Gait Factors Limiting Gait Function Factors Limiting Gait Function Decreased Activity Tolerance, Decreased Strength,Difficulty Following Directions,Limited Range of Motion,Pain,Poor Balance,Poor Safety Awareness PT-Balance Assessment Sitting Balance and Reactions Static Sitting Balance Ability Good Dynamic Sitting Balance Ability Fair Standing Balance and Reactions Static Standing Balance Ability Poor Dynamic Standing Balance Ability Poor M5 PT-IP Objective Assessments Start: 09/14/20 12:16 Freq: NEEDED Status: Active Protocol: Document 09/14/20 08:55 AB (Rec: 09/14/20 12:37 AB [email or web address]) Orientation Orientation/Cognition Level of Alertness Alert Orientation Name,Place,Situation Safety Awareness Decreased Safety Awareness Memory Description Short Term Impaired Gross Range of Motion Lower Extremity ROM Impairments pain limiting ROM Strength Lower Extremity Strength Assessment Bilaterally Impaired Comments Strength Comments RLE: 3+/5 LLE: 3-/5 Sensation Assessment Sensation Gross Sensation WNL Muscle Tone Muscle Tone WNL Yes M6 PT-IP Treatment Start: 09/14/20 12:16 Freq: NEEDED Status: Active Protocol: Document 09/14/20 08:55 AB (Rec: 09/14/20 12:37 AB [id number]) Physical Therapy Treatment Education Education Provided Precautions,Weight Bearing Status,Post-Op Packet,Safety M7 PT-IP Assessment and Plan Start: 09/14/20 12:16 Freq: NEEDED Status: Active Protocol: Document 09/14/20 08:55 AB (Rec: 09/14/20 12:37 AB [email or web address]) PT Summary Assessment and Plan Potential Rehabilitation Potential Fair Status of Condition at Evaluation Evolving Summary Impairments Pain,ROM,Strength,Balance, Coordination,Sensation,Tone, Cognition,Bed Mobility, Transfers,Gait,Activity Tolerance Assessment Summary pt requiring max A with mobility and unable to tolerate much with c/o increase pain on L knee. pt also requires increase motivation to participate. informed pt regarding assistance needed at this time and equipement needs but pt is not too receptive with recommendations. pt. will need SNF rehab at this time but pt refuses to go to SNF. informed residential case manager and is aware. will continue to assess pt's progress. Goals Bed Mobility Goal Standby Assistance Transfer Goal Standby Assistance,Front Wheeled Walker Gait Goal Standby Assistance,Front Wheel Walker Gait Distance 50 Other Goals improve ambulation using 4WW 100 ft SBA Days to Meet Goals 10 Frequency of Treatment Frequency Of Treatment Twice a Day Treatment Plan Physical Therapy Treatment Plan Bed Mobility Training,Transfer Training,Gait Training, Therapeutic Exercise,Balance Retraining,Post Op Education, Discharge Planning,Hot or Cold Pack,Neuromuscular Re-ed, Coordination Retraining,Manual Therapy Other Recommendations and Next Treatment ambulation; transfers Focus Precautions Other Precautions LLE WBAT Recommendations To Nursing Amount of Assist Needed 1 Person Assist Discharge Recommendations PT Discharge Recommendations SNF Rehab Transportation Needs at Discharge Wheelchair/Cabulance
--- NOTE | 2020-09-14 11:20 | P.PN_ITS ---
Subjective Subjective Date Patient Seen: 09/14/20 Time Patient Seen: 11:20 Interval history: Patient's pain is currently mild. Denies fever or chills. No nausea or vomiting. Patient states she will probably stay with a friend for a few days when she is discharged home from surgery. Exam Vital Signs (past 8 hours): - 09/14/20 03:58 09/14/20 08:16 Temperature 97.2 F L Pulse Rate 78 Respiratory Rate 18 Blood Pressure 144/76 H 101/46 L Pulse Oximetry 96 Oxygen Delivery Method CPAP Oxygen Flow Rate 0 Narrative Exam Narrative: 75-year-old female resting comfortably in bed in no apparent distress. Radha dressing is on and functioning. Motor functions intact distal left lower extremity. Sensation grossly intact to light touch. Objective Labs Result Diagrams: 09/14/20 05:42 09/13/20 07:10 Labs: Laboratory Results - last 24 hr 09/14/20 05:42 Hgb 11.4 L Hct 33.5 L PFSH Medical History Athlete's foot Diabetes Easy bruisability Gastroparesis GERD (gastroesophageal reflux disease) HTN (hypertension) Hyperlipidemia Hypothyroidism IBS (irritable bowel syndrome) Neuropathy SAUNDRA on CPAP Pneumonia Presence of device Rash and nonspecific skin eruption RLS (restless legs syndrome) Surgical History H/O hysterectomy for benign disease History of ankle surgery (~1969) History of hysterectomy History of lumbar laminectomy (2013) Hx of appendectomy Hx of bilateral cataract extraction (~03/2020) Hx of cholecystectomy Hx of dilation and curettage Hx of sinus surgery S/P patent foramen ovale closure (2004) Social History household members: none Smoking Status: Never smoker alcohol intake: former Assessment & Plan Post-op Postoperative Procedures: Procedures Operation Date: 09/13/20 07:45 Actual Procedures Side Surgeon p Total Knee Arthroplasty Left Roselyn Fletcher MD Postop day 1 status post left total knee arthroplasty. Weight-bearing as tolerated. Mobilize with physical therapy. BMI 45.8. Expect patient to be slow to mobilize. Likely need correction facility for assistance and strengthening of the lower extremities.
--- NOTE | 2020-09-14 15:13 | PT.IPTN ---
Current Diagnoses Unilateral primary osteoarthritis, left knee (09/14/20) Surgery Performed Operation Date: 09/13/20 07:45 Actual Procedures p Total Knee Arthroplasty(Left) - Roselyn Fletcher MD Physical Therapy Treatment Note M2 PT-IP Current Condition Start: 09/14/20 12:16 Freq: NEEDED Status: Active Protocol: Document 09/14/20 08:55 AB (Rec: 09/14/20 12:37 AB [id number]) Physical Therapy Current Condition Current Condition Evaluation Date 09/14/20 Treatment Diagnosis s/p L TKA ; difficulty in walking Onset Date 09/13/20 Precautions Other Precautions falls Weight Bearing Status Weight Bearing Status Weight Bear as Tolerated Allowed Weight Bearing Amount (enter % LLE WBAT or #) (%) M3 PT-IP Subjective Start: 09/14/20 12:16 Freq: NEEDED Status: Active Protocol: Document 09/14/20 14:45 SP (Rec: 09/14/20 17:12 SP [id number]) Subjective Physical Therapy Visit Type Type Treatment Note Visit Start Time 14:45 Visit Stop Time 15:13 Total Visit Minutes 28 Number of LEAD HANDLER Visits 1 Physical Therapy Visit Comments Patient Comments Pt agreeable to working with therapy. Patient Goals return home with friends to assist her or stay with a friend, unsure her plan. Pt adiment that doesn't want to go to SNF. Therapy Pain Assessment Pain Present Pain Present Pain Reported Location left knee Intensity 7 Scale Used Numeric (0 - 10) Description With Movement Pain Behaviors Facial Grimacing Pain Management Techniques Apply Cold,Modification of Treatment,Re-positioning, Timing of Activity with Medications M4 PT-IP Mobility and Gait Start: 09/14/20 12:16 Freq: NEEDED Status: Active Protocol: Document 09/14/20 14:45 SP (Rec: 09/14/20 17:12 SP [id number]) PT-Bed Mobility Assessment Supine to Sit Supine to Sit Standby Assistance Scooting Scooting to Edge of Bed Standby Assistance PT-Transfer Assessment Sit to and From Stand Sit to and from Stand Contact Guard Assistance,1 Person Assistance,Use of Upper Extremities Equipment Transfer Assistive Device Gait Belt,Front Wheeled Walker Orthotic/Prosthetic Devices or Brace: No Transfers Transfer Destination Chair Transfer Technique pt ambulated using FWW Transfer Ability Level of Assist Standby Assistance,Contact Guard Assistance,Use of Upper Extremities Comments Mobility Comments supine>sit, scoot to EOB, sit> stand SBA. Pt ambulated further distance into hallway using fWW CGA>sBA step to gait initially with occasional cue for knee flexion heel toe with improved self corrections as distance progressed, stop stand rest at 50 ft due to pain and decreased strength and endurance. Pt stated has 250 ft to walk at home to get to appt just can't do right now, yet. Pt returned to room and SPT good FWW positioning and reach back slow descent onto chair and scoot self back . LEAD HANDLER provided cushions to support LLE in front. Discussed post op ex and referred to packet but not performed, will next tx. Pt had call light and all needs in reach, cold pack applied to L knee before left. Gait Assessment Gait Gait Assistance Required: Standby Assistance,Contact Guard Assist Distance (Feet) 100 Able to Maintain Weight Bearing Status Yes During Gait Assistive Devices Assistive Device Gait Belt,Front Wheeled Walker Orthotic/Prosthetic Devices or Brace: No Gait Deviations General Gait Pattern Antalgic,Decreased Stride Length,Decreased Feet Clearance,Step-to Gait Factors Limiting Gait Function Factors Limiting Gait Function Decreased Activity Tolerance, Decreased Strength,Limited Range of Motion,Pain Comments Gait Comments See mobiltiy comments for details. Stair Climbing Assessment Comments Stair Climbing Comments No stairs to assess at home. PT-Balance Assessment Sitting Balance and Reactions Static Sitting Balance Ability Good Dynamic Sitting Balance Ability Fair Standing Balance and Reactions Static Standing Balance Ability Good Dynamic Standing Balance Ability Fair Device Used FWW M5 PT-IP Objective Assessments Start: 09/14/20 12:16 Freq: NEEDED Status: Active Protocol: Document 09/14/20 08:55 AB (Rec: 09/14/20 12:37 AB [id number]) Orientation Orientation/Cognition Level of Alertness Alert Orientation Name,Place,Situation Safety Awareness Decreased Safety Awareness Memory Description Short Term Impaired Gross Range of Motion Lower Extremity ROM Impairments pain limiting ROM Strength Lower Extremity Strength Assessment Bilaterally Impaired Comments Strength Comments RLE: 3+/5 LLE: 3-/5 Sensation Assessment Sensation Gross Sensation WNL Muscle Tone Muscle Tone WNL Yes M6 PT-IP Treatment Start: 09/14/20 12:16 Freq: NEEDED Status: Active Protocol: Document 09/14/20 14:45 SP (Rec: 09/14/20 17:12 SP [id number]) Physical Therapy Treatment Education Education Provided Precautions,Weight Bearing Status,Post-Op Packet,Safety M7 PT-IP Assessment and Plan Start: 09/14/20 12:16 Freq: NEEDED Status: Active Protocol: Document 09/14/20 14:45 SP (Rec: 09/14/20 17:12 SP [id number]) PT Summary Assessment and Plan Potential Rehabilitation Potential Fair Status of Condition at Evaluation Evolving Summary Impairments Pain,ROM,Strength,Balance, Coordination,Sensation,Tone, Cognition,Bed Mobility, Transfers,Gait,Activity Tolerance Progress Towards Goals Progressing Toward Goals,Slow Progress due to Pain,Slow Progress due to Activity Tolerance Assessment Summary Pt required CG- SBA during all mobiltiy with FWW. Pt has decreased activity tolerance to walk 250 ft had to complete at appt. Heavy WB on FWW so for safety didn't assess 4WW use had at home. Will assess tomorrow am tx. LEAD HANDLER recommended to pt having friend to perform caregiver training pre DC and will ask her in am what time can work together. Pt is ok to return home with friends to assist her. Pt commented during gait that physician stated can drive if able, LEAD HANDLER recommended getting a ride to appts due to pain medication taking for safety and stated a friend can take her. Goals Bed Mobility Goal Standby Assistance Transfer Goal Standby Assistance,Front Wheeled Walker Gait Goal Standby Assistance,Front Wheel Walker Gait Distance 50 Other Goals improve ambulation using 4WW 100 ft SBA Days to Meet Goals 10 Frequency of Treatment Frequency Of Treatment Twice a Day Treatment Plan Physical Therapy Treatment Plan Bed Mobility Training,Transfer Training,Gait Training, Therapeutic Exercise,Balance Retraining,Post Op Education, Discharge Planning,Hot or Cold Pack,Neuromuscular Re-ed, Coordination Retraining,Manual Therapy Other Recommendations and Next Treatment post op ex, gait further Focus distance 250 ft using FWW vs 4WW, check with pt if friend coming in for caregiver training, pt plans uncertain. Precautions Other Precautions LLE WBAT Recommendations To Nursing Amount of Assist Needed Standby Assistance Discharge Recommendations PT Discharge Recommendations Home with Assistance, Outpatient PT Equipment Needed for Home Before FWW if unsafe with 4WW Discharge Transportation Needs at Discharge Wheelchair/Cabulance
--- NOTE | 2020-09-14 15:18 | CM.IDA ---
Initial DCP Assessment Note Pt is a 75 yo female, resident of [facility], now POD#1 from Left knee surgery w/ Dr Fletcher PCP: Rachna Hampton Payer: Teri AGUIAR Reviewed chart, pt discussed in multidisciplinary rounds this morning. Met w/patient, introduced role. PT recommending SNF, however, patient wants to return home w/friends to assist. Patient states she had planned before her surgery to either have friends come to her home or she would DC to a friend's home. Patient has outpatient PT appt. scheduled and does not want HH Spoke w/PT Bisi who continues to recommend SNF, however, patient has chosen home w/outpatient PT so will likely DC tomorrow 6.2.21 home w/friends and outpatient f/u TASHA Mack
[2020-09-14 15:30] VITALS: BP 163/79; PULSE 101; RESP 20; TEMP 37.2; O2SAT 90
[2020-09-14 20:00] VITALS: BP 112/58; PULSE 103; RESP 18; TEMP 37.2; O2SAT 100
[2020-09-14] MEDS: ATORVASTATIN 20 MG TABLET 10 MG PO (21:43)
[2020-09-14] MEDS: DULOXETINE 30 MG CAPSULE PO (21:43)
[2020-09-14] MEDS: HYDROMORPHONE 4 MG TABLET PO (21:44)
[2020-09-14] MEDS: PRAMIPEXOLE 0.25 MG TABLET PO (21:44)
[2020-09-14 23:54] VITALS: BP 149/75; PULSE 96; RESP 16; TEMP 36.9; O2SAT 93
--- NOTE | 2020-09-15 02:29 | PC.NURSE ---
patient is alert and oriented. Breath sounds CTA with RA sat of 93%; placed CPAP for sleep. HRR w/BP of 149/75. Denies nausea. BT present and is passing flatus. Denies dysuria, frequency or urgency with urination but states she is frequently incontinent and is wearing a brief. Is able to move herself in bed. Reports she gets up with walker and 1 assist but evening RN reports patient not mobilizing well; gait not assessed at this time. EDWARD dressing to left knee is intact and functioning with approx 50% covered with drainage; covered with keysha. Left LE is edematous. Stated pain was 6/10 so medicated with Toradol and has been asleep since shortly after being medicated. CMS is intact except for decreased movement. Wearing bilateral calf SCD's. Fall risk score is high and bed alarm is activated.
[2020-09-15] MEDS: LEVOTHYROXINE 100 MCG TABLET PO (05:56)
[2020-09-15] MEDS: HYDROMORPHONE 4 MG TABLET PO ×3 (05:57→15:04)
[2020-09-15] MEDS: PANTOPRAZOLE DR 40 MG TABLET PO (06:00)
[2020-09-15 06:13] VITALS: BP 139/91; PULSE 88; RESP 18; TEMP 36.2; O2SAT 93
--- NOTE | 2020-09-15 07:28 | P.PN_ITS ---
Subjective Subjective Date Patient Seen: 09/15/20 Time Patient Seen: 07:28 Interval history: Patient states she is doing well overall but notes that she is in a moderate amount of pain at rest. At this time she rates her pain a 7/10 in intensity. Patient denies fever, chills, nausea, chest pain, shortness of breath, or urinary retention. She notes that she has been able to with physical therapy and has been able to get out of bed to use the commode by herself. Exam Vital Signs (past 8 hours): - 09/14/20 23:54 09/15/20 06:13 Temperature 98.5 F 97.1 F L Pulse Rate 96 H 88 Respiratory Rate 16 18 Blood Pressure 149/75 H 139/91 H Pulse Oximetry 93 93 Oxygen Delivery Method Room Air,CPAP Oxygen Flow Rate 0 Narrative Exam Narrative: 75-year-old female postop day 2 status post left total knee arthroplasty. Patient is resting comfortably in bed, is in no acute distress, is alert and oriented x3. Skin is warm and dry, and the skin surrounding the incision site is free of erythema, warmth, induration, or discharge. Radha dressing over the incision site is functioning, however it is soaked through with blood. Good sensation appreciated throughout the bilateral lower extremiti es light touch. Hip flexion performed bilaterally without difficulty or discomfort, right greater than left. Ankle dorsiflexion, plantar flexion, eversion, inversion performed bilaterally without difficulty or discomfort. DP pulses palpated bilaterally. Calves are soft nontender, negative Homans sign. No other signs of DVT appreciated. Const General: cooperative, healthy appearing and comfortable Resp Effort & Inspection: normal respiratory effort and [facility] Skin General: no rashes or lesions noted Objective Labs Result Diagrams: 09/14/20 05:42 09/13/20 07:10 [facility] Medical History Athlete's foot Diabetes Easy bruisability Gastroparesis GERD (gastroesophageal reflux disease) HTN (hypertension) Hyperlipidemia Hypothyroidism IBS (irritable bowel syndrome) Neuropathy SAUNDRA on CPAP Pneumonia Presence of device Rash and nonspecific skin eruption RLS (restless legs syndrome) Surgical History H/O hysterectomy for benign disease History of ankle surgery (~1970) History of hysterectomy History of lumbar laminectomy (2013) Hx of appendectomy Hx of bilateral cataract extraction (~03/2020) Hx of cholecystectomy Hx of dilation and curettage Hx of sinus surgery S/P patent foramen ovale closure (2004) Social History household members: none Smoking Status: Never smoker alcohol intake: former Assessment & Plan Post-op Postoperative Procedures: Procedures Operation Date: 09/13/20 07:45 Actual Procedures Side Surgeon p Total Knee Arthroplasty Left Roselyn Fletcher MD Postoperative day: 2 Postoperative status: doing well Postoperative plan: ambulate Postoperative plan narrative: Patient is to continue working on ambulation with the assistance of a front wheeled walker with physical therapy. Patient is also to work on stair ascension with physical therapy. Current pain management regimen is to be continued. Aspirin 81 mg twice daily is to be continued for 6 weeks for DVT prophylaxis. Time Spent With Patient Time with patient: less than 15 minutes
[2020-09-15 08:14] VITALS: BP 136/73
[2020-09-15] MEDS: DULOXETINE 30 MG CAPSULE 120 MG PO (08:14)
[2020-09-15] MEDS: lisinopriL 5 MG TABLET PO (08:14)
[2020-09-15] MEDS: OXYBUTYNIN 5 MG ER TAB 15 MG PO (08:14)
[2020-09-15] MEDS: DOCUSATE 100 MG CAPSULE PO (08:14)
[2020-09-15] MEDS: ASPIRIN EC 81 MG TABLET PO (08:14)
[2020-09-15] MEDS: ACETAMINOPHEN 325 MG TABLET 650 MG PO ×2 (08:15→15:04)
[2020-09-15] MEDS: SODIUM CHLORIDE 0.9% FLUSH 10 ML IV (08:16)
[2020-09-15] MEDS: INSULIN LISPRO 100 UNIT/ML 3ML VIAL SUBCUT ×2 (08:17→12:38)
[2020-09-15] MEDS: INSULIN GLARGINE 100 UNIT/ML 3ML PEN 35 UNIT SUBCUT (08:22)
[2020-09-15 08:23] VITALS: BP 136/73; RESP 86; TEMP 36.4; O2SAT 93
--- NOTE | 2020-09-15 08:58 | PM.DS.1 ---
History of Present Illness History of Present Illness Date Patient Seen: 09/15/20 Time Patient Seen: 08:59 Chief complaint: Left Total Knee Arthroplasty *OPB* $360 copay Narrative: Referred to previous HPI. Discharge Providers Provider Date of admission: 09/14/20 14:25 Discharge Date: 09/15/20 Primary care physician: Doctor Ty MD Consults: 09/09/20 13:51 Consult to Anesthesiology Routine Comment: Consulting Provider: Anesthesiologist Reason for consultation: Surgeon requested re: Diabetes Consult to Respiratory Therapy Evaluate & Treat Comment: Physician Instructions: Evaluate and treat 09/13/20 06:00 Consult to Anesthesiology Routine Comment: Consulting Provider: Anesthesiologist Reason for consultation: Regional block for post operative pain control 09/13/20 07:26 Consult to Respiratory Therapy Evaluate & Treat Comment: Physician Instructions: Evaluate and treat 09/13/20 10:58 Consult to Discharge Planning Routine Comment: Consult to Physical Therapy Evaluate & Treat Comment: Physician Instructions: postop TKA protocol Consult to Respiratory Therapy Evaluate & Treat Comment: Physician Instructions: Evaluate and treat Discharge provider: Juma Arceo PA-C Summary Hospital Course Discharge Diagnosis: Left knee osteoarthritis Status post left total knee arthroplasty Hospital Course: Patient was admitted to the hospital following the above-listed procedure for the above-listed diagnosis. Following the procedure the patient has been convalescing appropriately her pain has been managed with current pain management regimen. Throughout the course of her stay in the hospital the patient has denied fever, chills, nausea, chest pain, shortness of breath, or urinary retention. Patient has been taking aspirin 81 mg twice daily for DVT prophylaxis along with the assistance of sequential compression devices. Patient successfully worked on ambulation and stair ascension with the assistance of a front wheel walker with physical therapy. Radha dressing over the incision site has been changed as it becomes soiled. Patient has remained weight-bearing as tolerated with the assistance of a front wheeled walker. Status at Discharge Cognitive/behavioral status at discharge: oriented Functional status at discharge: uses cane/walker Overall status at discharge: patient is progressing back to baseline Exam Vital Signs (past 8 hours): - 09/15/20 06:13 09/15/20 08:14 09/15/20 08:23 Temperature 97.1 F L 97.5 F L Pulse Rate 88 Respiratory Rate 18 86 H Blood Pressure 139/91 H 136/73 136/73 Pulse Oximetry 93 93 Oxygen Delivery Method Room Air,CPAP Oxygen Flow Rate 0 Narrative Exam Narrative: 75-year-old female postop day 2 status post left total knee arthroplasty. Patient is resting comfortably in bed, is in no acute distress, is alert and oriented x3. Skin is warm and dry, and the skin surrounding the incision site is free of erythema, warmth, induration, or discharge. Radha dressing over the incision site is functioning, however it is soaked through with blood. Good sensation appreciated throughout the bilateral lower extremities light touch. Hip flexion performed bilaterally without difficulty or discomfort, right greater than left. Ankle dorsiflexion, plantar flexion, eversion, inversion performed bilaterally without difficulty or discomfort. DP pulses palpated bilaterally. Calves are soft nontender, negative Homans sign. No other signs of DVT appreciated. Const General: cooperative, healthy appearing and comfortable Resp Effort & Inspection: normal respiratory effort and able to speak in complete sentences Skin General: no rashes or lesions noted Objective Labs Result Diagrams: 09/14/20 05:42 09/13/20 07:10 [facility] Medical History Athlete's foot Diabetes Easy bruisability Gastroparesis GERD (gastroesophageal reflux disease) HTN (hypertension) Hyperlipidemia Hypothyroidism IBS (irritable bowel syndrome) Neuropathy SAUNDRA on CPAP Pneumonia Presence of device Rash and nonspecific skin eruption RLS (restless legs syndrome) Surgical History H/O hysterectomy for benign disease History of ankle surgery (~1969) History of hysterectomy History of lumbar laminectomy (2013) Hx of appendectomy Hx of bilateral cataract extraction (~03/2020) Hx of cholecystectomy Hx of dilation and curettage Hx of sinus surgery S/P patent foramen ovale closure (2004) Social History household members: none Smoking Status: Never smoker alcohol intake: former Discharge Assessment & Plan Assessment and Plan Assessment: Patient is doing well. Her condition has improved significantly since surgery. Plan of Treatment: Patient is to continue outpatient physical therapy following discharge from the hospital. First postoperative visit in clinic is scheduled for 2 weeks following discharge. Current pain management regimen is to be continued. Aspirin 81 mg twice daily is to be continued for 6 weeks for DVT prophylaxis. Radha dressing over the incision site should remain intact for 1 week. Contact the clinic if the dressing becomes damage, soiled, or nonfunctional. Patient is to remain weight-bearing as tolerated with the assistance of a front wheeled walker. Patient is to contact the clinic with any concerns or questions. Any signs of increased redness, swelling, warmth, pain, or discharge from around the incision site should be reported to the clinic. Discharge Plan Discharge Plan Patient Disposition: Home Provider Discharge Comment: Patient cleared for discharge pending physical therapy clearance. Discharge orders & Medications Prescriptions: New acetaminophen 325 mg Tablet 650 mg PO TID Qty: 90 RF: 0 aspirin 81 mg Tablet,Delayed Release (Dr/Ec) 81 mg PO BID Qty: 90 RF: 0 ibuprofen 400 mg Tablet 400 mg PO Q4HR PRN (Reason: pain) Qty: 90 RF: 0 oxycodone 5 mg Tablet 5 mg PO Q3HR PRN (Reason: Pain, Moderate (4-6)) Qty: 42 RF: 0 Continued oxybutynin chloride 15 mg Tablet Extended Release 24 Hr 15 mg PO DAILY RF: 0 omeprazole 40 mg Capsule,Delayed Release(Dr/Ec) 40 mg PO BID RF: 0 levothyroxine 100 mcg Tablet 100 mcg PO DAILY RF: 0 pramipexole 0.25 mg Tablet 0.25 mg PO BEDTIME RF: 0 lisinopril 5 mg Tablet 5 mg PO DAILY RF: 0 insulin aspart U-100 [Novolog Flexpen U-100 Insulin] 100 unit/mL (3 mL) Insulin Pen 17 unit SUBCUT TID RF: 0 rosuvastatin 5 mg Tablet 5 mg PO BEDTIME RF: 0 duloxetine 30 mg Capsule,Delayed Release(Dr/Ec) 30 mg PO BEDTIME RF: 0 duloxetine 60 mg Capsule,Delayed Release(Dr/Ec) 120 mg PO DAILY RF: 0 Toujeo Max U-300 SoloStar 300 unit/mL (3 mL) Insulin Pen 35 unit SUBCUT BID RF: 0 Domperidone 10 mg PO TID RF: 0 Follow up/Referrals: Miscellaneous,Doctor, MD [Primary Care Provider] - Diet/Activity/Treatments Diet: Regular Activity: Weight-bearing as tolerated with the assistance of a front wheeled walker. Skin/Wound/Dressing Care Report to your healthcare provider any signs of infection, such as:: chills, fever, night sweats, increased pain, unusual drainage and unusual redness Dressing: Radha dressing over the incision site should remain intact for 1 week. Contact clinic if the dressing becomes damaged, soiled, or nonfunctional. Other wound treatment: Avoid placing topical ointments over the incision site. Avoid soaking the incision site. Visit Report/Discharge Packet Instructions: DI for Knee Replacement, DI for Prescription Opioid Use Stand Alone Forms: Surgery Discharge Discharge Data Primary Care Provider: Miscellaneous,Doctor Attending Provider: Roselyn Fletcher
--- NOTE | 2020-09-15 09:42 | CM.DPNOTE ---
Addendum entered by Kiana Man 09/15/20 13:52: Faxed DC summary to [facility] per Kandy on 09/15/20 and received fax confirmation. Kiana Man CM Asst. Addendum entered by Kiana Man 09/15/20 11:46: Faxed Face to Face and order to [facility] on 09/15/20 and received fax confirmation. Kiana Man CM Asst. Original Note: Faxed referral packet to [facility] per Kandy on 09/15/20 and received fax confirmation. Will fax order and face to face when completed. Kiana Man CM Asst.
--- NOTE | 2020-09-15 10:22 | PT.IPTN ---
Current Diagnoses Unilateral primary osteoarthritis, left knee (09/14/20) Surgery Performed Operation Date: 09/13/20 07:45 Actual Procedures p Total Knee Arthroplasty(Left) - Roselyn Fletcher MD Physical Therapy Treatment Note M2 PT-IP Current Condition Start: 09/14/20 12:16 Freq: NEEDED Status: Active Protocol: Document 09/14/20 08:55 AB (Rec: 09/14/20 12:37 AB [id number]) Physical Therapy Current Condition Current Condition Evaluation Date 09/14/20 Treatment Diagnosis s/p L TKA ; difficulty in walking Onset Date 09/13/20 Precautions Other Precautions falls Weight Bearing Status Weight Bearing Status Weight Bear as Tolerated Allowed Weight Bearing Amount (enter % LLE WBAT or #) (%) M3 PT-IP Subjective Start: 09/14/20 12:16 Freq: NEEDED Status: Active Protocol: Document 09/15/20 09:58 CLB (Rec: 09/15/20 12:10 CLB [id number]) Subjective Physical Therapy Visit Type Type Treatment Note Visit Start Time 09:58 Visit Stop Time 10:22 Total Visit Minutes 24 Number of TREASURY ANALYST Visits 2 Physical Therapy Visit Comments Patient Comments Pt agreeable to working with therapy and wanting to d/c home with friend HARDEEP. Therapy Pain Assessment Pain When Pain Assessed During Mobility Pain Present Pain Present Pain Reported Location left knee Intensity 5 Description With Movement Pain Behaviors Facial Grimacing Pain Management Techniques Modification of Treatment,Re- positioning,Timing of Activity with Medications M4 PT-IP Mobility and Gait Start: 09/14/20 12:16 Freq: NEEDED Status: Active Protocol: Document 09/15/20 09:58 CLB (Rec: 09/15/20 12:10 CLB [id number]) PT-Bed Mobility Assessment Supine to Sit Supine to Sit Standby Assistance Sit to Supine Sit to Supine Standby Assistance Scooting Scooting to Edge of Bed Standby Assistance PT-Transfer Assessment Sit to and From Stand Sit to and from Stand Standby Assistance,1 Person Assistance,Use of Upper Extremities Equipment Transfer Assistive Device Gait Belt,4 Wheeled Walker Orthotic/Prosthetic Devices or Brace: No Transfers Transfer Destination Chair Transfer Technique pt ambulated using 4WW Transfer Ability Level of Assist Standby Assistance,Use of Upper Extremities Comments Mobility Comments Pt able to get to EOB SBA then able to get back to supine SBA. Pt returned to EOB and stood with 4WW SBA, pt ambulated in larson ~100ft w/4WW /SBA. Pt ambulated to BR and sat on toilet SBA, pt able to kieran/doff brief and perform pericare. Pt stood SBA with use of wall rail and ambulated to chair. During mobility pt bandage saturated with blood, informed RN. Pt sat in chair SBA and pt legs elevated. 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 Gait Assessment Gait Gait Assistance Required: Standby Assistance,1 Person Assist Distance (Feet) 100 Able to Maintain Weight Bearing Status Yes During Gait Assistive Devices Assistive Device Gait Belt,Front Wheeled Walker Orthotic/Prosthetic Devices or Brace: No Gait Deviations General Gait Pattern Antalgic,Decreased Stride Length,Decreased Feet Clearance,Step-to Gait Factors Limiting Gait Function Factors Limiting Gait Function Decreased Activity Tolerance, Decreased Strength,Limited Range of Motion,Pain Comments Gait Comments See mobiltiy comments for details. Stair Climbing Assessment Comments Stair Climbing Comments No stairs to assess at home or friends home. M5 PT-IP Objective Assessments Start: 09/14/20 12:16 Freq: NEEDED Status: Active Protocol: Document 09/14/20 08:55 AB (Rec: 09/14/20 12:37 AB [id number]) Orientation Orientation/Cognition Level of Alertness Alert Orientation Name,Place,Situation Safety Awareness Decreased Safety Awareness Memory Description Short Term Impaired Gross Range of Motion Lower Extremity ROM Impairments pain limiting ROM Strength Lower Extremity Strength Assessment Bilaterally Impaired Comments Strength Comments RLE: 3+/5 LLE: 3-/5 Sensation Assessment Sensation Gross Sensation WNL Muscle Tone Muscle Tone WNL Yes M6 PT-IP Treatment Start: 09/14/20 12:16 Freq: NEEDED Status: Active Protocol: Document 09/15/20 09:58 CLB (Rec: 09/15/20 12:10 CLB [id number]) Physical Therapy Treatment Exercises Exercises Ankle Pumps,Gluteal Sets,Quad Sets,Heel Slides,Straight Leg Raises,Short Arc Quads Knee ROM Measurement 40 degrees Education Education Provided Precautions,Weight Bearing Status,Post-Op Packet,Safety M7 PT-IP Assessment and Plan Start: 09/14/20 12:16 Freq: NEEDED Status: Active Protocol: Document 09/15/20 09:58 CLB (Rec: 09/15/20 12:10 CLB [id number]) PT Summary Assessment and Plan Potential Rehabilitation Potential Fair Status of Condition at Evaluation Evolving Summary Impairments Pain,ROM,Strength,Balance, Coordination,Sensation,Tone, Cognition,Bed Mobility, Transfers,Gait,Activity Tolerance Progress Towards Goals Progressing Toward Goals Assessment Summary Pt improving with all mobility requiring SBA for bed mobility, sit<>stand and gait. Pt able to ambulate safely with 4WW with step to gait pattern. Pt plans to d/c to friends home with friend to assist pt as needed. Friends home has no stairs and ~50ft from car to front door. Goals Bed Mobility Goal Standby Assistance Transfer Goal Standby Assistance,Front Wheeled Walker Gait Goal Standby Assistance,Front Wheel Walker Gait Distance 50 Other Goals improve ambulation using 4WW 100 ft SBA Days to Meet Goals 10 Frequency of Treatment Frequency Of Treatment Twice a Day Treatment Plan Physical Therapy Treatment Plan Bed Mobility Training,Transfer Training,Gait Training, Therapeutic Exercise,Balance Retraining,Post Op Education, Discharge Planning,Hot or Cold Pack,Neuromuscular Re-ed, Coordination Retraining,Manual Therapy Precautions Other Precautions LLE WBAT Recommendations To Nursing Amount of Assist Needed Standby Assistance Discharge Recommendations PT Discharge Recommendations Home with Assistance, Outpatient PT Transportation Needs at Discharge Private Vehicle
--- NOTE | 2020-09-15 11:49 | CM.DPNOTE ---
DC Note DC order in place for home and patient agrees, she plans to have a friend drive her home today. Patient now agreeable to HH, RN and therapy agree this will be helpful. No agency preference so HH referral made by WALTER Bruno to [facility] per calendar rotation. Plan: DC expected later today, home w/friend and [facility] RN/PT/OT/SEWING MACHINE OPERATOR JW
--- NOTE | 2020-09-15 14:33 | PC.NURSE ---
EDWARD dsg changed this am by SUNITA Dennison. Pt up shortly thereafter and drainage already present on dsg. Notified SUNITA Dennison of drainage - He stated He would contact Dr. Fletcher. Contacted by Dr. Fletcher who was in the clinic and she requested pictures to be sent to her phone. Per her instructions EDWARD removed, steri strips applied, and aquacell placed. DSG remained CDI until Pt put her leg down to get dressed for discharge and then began to seep once again-1/3 lower portion of aquacell with red bloody drainage. Sent new pics to Dr. Fletcher and have not heard back. Pt is now dressed and sleeping in her chair awaiting instructions from Dr. Fletcher.
--- NOTE | 2020-09-15 15:08 | PC.NURSE ---
Pt is dressed and ready for discharge home with Friend Laurence. DSG to left knee is still leaking despite being changed twice. Spoke with Dr. Fletcher and sent pictures. Pt to go to [facility] in [facility] directly from here to have Dr. Fletcher assess and redress wound. Went over d/c instructions with Pt-discussed d/c meds, time of last dose, reviewed stroke education, s/s of infection, and follow up. Reminded Pt that she is not to drive while taking narcotics and to drink plenty of fluids to prevent constipation or dehydration. Pt denies further questions and was taken out via w/c by CARPENTRY PROFESSIONAL to POV with friend and all belongings.
== END 2020-09-15 15:17 | disposition home or self-care (01) ==
LOC: OR 14:36 → AC 14:36
PROVIDERS: Anesthesiology; Admitting Provider Orthopaedic Surgery; PCP Internal Medicine Geriatric Medicine; Referring Provider Internal Medicine Geriatric Medicine; Visit Provider Orthopaedic Surgery
PROC: 0SRD0JZ Replacement of Left Knee Joint with Synthetic Substitute, Open Approach (ICD-10-PCS; CPT 27447; principal; 2020-09-13 07:45)
DX: M17.12 Unilateral primary osteoarthritis, left knee (principal); Z20.822 Contact with and (suspected) exposure to COVID-19; I10 Essential (primary) hypertension; E11.9 Type 2 diabetes mellitus without complications; I25.10 Atherosclerotic heart disease of native coronary artery without angina pectoris; K21.9 Gastro-esophageal reflux disease without esophagitis; G47.33 Obstructive sleep apnea (adult) (pediatric); E66.9 Obesity, unspecified; Z86.73 Personal history of transient ischemic attack (TIA), and cerebral infarction without residual deficits; Z79.4 Long term (current) use of insulin
CPT/HCPCS: 27447; 36415; 73560; 80048; 82962; 85014; 85018; 85025; 97110; 97116; 97162; 97530; C1776; G0378; C9290; J0690; J1170; J1815; J1885; J2250; J2405; J2704; J3010